=== PATIENT | female | born 1985 | race Caucasian/White ===

== ENCOUNTER 2020-03-13 07:48 | Emergency (ER) | payer BC, SELFPAY ==
[2020-03-13 08:00] VITALS: BP 167/94; PULSE 107; RESP 18; TEMP 36.9; O2SAT 99
[2020-03-13 08:26] LABS: Add Urine Microscopic? NO; Appearance Urine Clear (Clear); Bilirubin Urine Negative (Negative); Blood Urine Negative (Negative); Color Urine Yellow (Yellow); Glucose Urine UA Negative (Negative); Ketones Urine Negative (Negative); Leukocyte Esterase Ur Negative (Negative); Nitrate Urine Negative (Negative); Protein Urine Negative (Negative); Specific Grav Ur 1.015 (1.010-1.020); Urobilinogen Urine 0.2 mg/dL (0.2-1.0); pH Urine 5.5 (5.0-8.0)
--- NOTE | 2020-03-13 08:53 | ED.ABDPAIN ---
HPI - Abdominal Pain General Chief Complaint: Urogenital-Female Stated Complaint: CAN NOT URINATE Source: patient Mode of arrival: ambulatory Limitations: no limitations History of Present Illness HPI narrative: this 34-year-old female woke up with a suprapubic pain this morning rated 5/10. This was associated with inability to urinate. She denies recent dysuria. For over a year she has had problems with urinary urgency. She wears a liner to address this. There are times urine soaks her underwear requiring her to shower. The incontinence has never been evaluated. She uses a Mirena IUD; spotting started yesterday. She inserted a menstrual cup yesterday which she has been wearing since. She has used a menstrual cup with menstruation for long time without difficulties with urinary retention. She denies fevers chills back pain. No history of recurring UTIs Related Data Home Medications Medication Instructions Recorded Confirmed No Home Medications 03/13/20 03/13/20 Allergies Allergy/AdvReac Type Severity Reaction Status Date / Time No Known Allergies Allergy Unverified 11/13/15 18:43 Review of Systems Constitutional: Constitutional: Reports no additional constitutional complaints Gastrointestinal: Gastrointestinal: Denies diarrhea, Denies nausea and Denies vomiting Genitourinary: Genitourinary: Reports no additional female genitourinary complaints [facility] Past Medical History Medical History (Updated 03/13/20 @ 22:37 by Lee Solorzano MD) Asthma Social History Social History (Updated 03/13/20 @ 09:00 by Lee Solorzano MD) Smoking status: Never smoker Alcohol intake: current Alcohol use details: rarely drinks Exam Narrative: Exam Narrative: Durham catheter was inserted prior to my examination. Healthy-appearing female resting comfortably in bed. GI: GI Palp: Yes Tenderness to palpation present (GI) (very minor suprapubic tenderness. No palpable mass) : General: Yes no CVA tenderness Course Course Emergency Course: A bladder scan showed a full bladder. Durham catheter yielded 650 mL of urine. The Durham catheter and cervical cup was removed. Pt urinated following this. Vital Signs Vital signs: Vital Signs Temperature 36.9 C 03/13/20 08:00 Pulse Rate 107 H 03/13/20 08:00 Respiratory Rate 18 03/13/20 08:00 Blood Pressure 167/94 H 03/13/20 08:00 Pulse Oximetry 99 03/13/20 08:00 Temperature 36.6 C 03/13/20 09:22 Pulse Rate 80 03/13/20 09:22 Respiratory Rate 20 03/13/20 09:22 Blood Pressure 125/75 03/13/20 09:22 Pulse Oximetry 100 03/13/20 09:22 MDM - Abdominal Pain MDM Narrative Medical decision making narrative: Urinary retention likely related to the use of a cervical cap. She may have urgency incontinence vs. overflow incontinence. Recommended f/u with PCP and urology. Lab Data Lab results narrative: Urinalysis negative for pyuria Labs: Lab Results 03/13/20 Range/Units 08:20 Urine Color Yellow (Yellow) Urine Appearance Clear (Clear) Urine pH 5.5 (5.0-8.0) Ur Specific [place] 1.015 (1.010-1.020) Urine Protein Negative (Negative) Urine Glucose (UA) Negative (Negative) Urine Ketones Negative (Negative) Ur Blood (Man) Negative (Negative) Urine Nitrate Negative (Negative) Urine Bilirubin Negative (Negative) Urine Urobilinogen 0.2 (0.2-1.0) mg/dL Ur Leukocyte Esterase Negative (Negative) Urine Characteristics Cloudy Discharge Plan Discharge Clinical Impression: Acute urinary retention Bladder incontinence Qualifiers: Urinary Incontinence type: unspecified incontinence Qualified Code(s): R32 - Unspecified urinary incontinence Patient Disposition: Home, Self-Care Condition: Stable Instructions: Acute Urinary Retention in Women (ED) Additional Instructions: Do not use cervical cup. Follow up with Dr. Wang for further evaluation of urinary urgenc
--- NOTE | 2020-03-13 08:56 | PC.NURSE ---
Pt. given lrg. amts. of water to drink, cooper removed, will see if pt. able to void on own p removal of catheter and pt. removed her menstrual cup.
[2020-03-13 09:22] VITALS: BP 125/75; PULSE 80; RESP 20; TEMP 36.6; O2SAT 100
== END 2020-03-13 09:28 | disposition home or self-care (01) ==
PROVIDERS: Emergency Provider Family Medicine; PCP Internal Medicine
DX: R33.9 Retention of urine, unspecified (principal)
CPT/HCPCS: 81003; 87086; 99282; 99283

== ENCOUNTER 2023-03-20 11:05 | Outpatient (CLI) | payer BC, SELFPAY ==
[2023-03-20 11:19] LABS: Basophils Absolute Auto 0.07 K/mm3 (0.00-0.10); Basophils Percent Auto 0.9 % (0.0-1.0); Eosinophils Absolute Auto 0.21 K/mm3 (0.02-0.50); Eosinophils Percent Auto 2.7 % (1.0-6.0); Hematocrit 39.8 % (35.0-49.0); Hemoglobin 13.6 g/dL (12.0-15.0); Immature Granulocyte Absolute 0.04 K/mm3 (0.00-0.00); Immature Granulocyte Percent A 0.5 % (0.0-0.0); Lymphocytes Absolute Auto 1.39 K/mm3 (1.10-4.50); Mean Corpuscular HGB Conc 34.2 g/dL (32.0-36.0); Mean Corpuscular Hemoglobin 28.3 pg (27.0-31.0); Mean Corpuscular Volume 82.7 fL (78.0-102.0); Mean Platelet Volume 10.6 fl (9.2-11.8); Monocytes Absolute Auto 0.48 K/mm3 (0.10-0.90); Monocytes Percent Auto 6.2 % (2.0-11.0); Neutrophils Absolute Auto 5.5 K/mm3 (1.7-7.2); Neutrophils Percent Auto 71.7 % (50.0-70.0); Platelet Count Result 231 K/mm3 (150-420); Red Blood Count 4.81 M/mm3 (4.20-5.40); Red Cell Distribution Width 12.9 % (11.6-14.4); White Blood Count 7.7 K/mm3 (4.8-10.8)
[2023-03-20 11:20] LABS: Appearance Urine Clear (Clear); Bilirubin Urine Negative (Negative); Blood Urine Negative (Negative); Color Urine Light Yellow (Yellow); Glucose Urine UA Negative (Negative); Ketones Urine Negative (Negative); Leukocyte Esterase Ur Negative (Negative); Nitrate Urine Negative (Negative); Protein Urine Negative (Negative); Urobilinogen Urine 0.2 mg/dL (0.2-1.0)
[2023-03-20 11:23] LABS: Add Urine Microscopic? NO
[2023-03-20 13:49] LABS: Alanine Aminotransferase 23 U/L (14-59); Alkaline Phosphatase 78 U/L (46-116); Anion Gap 9 mmol/L (8-16); Aspartate Amino Transferase 13 U/L (15-37); Bilirubin,Total 0.4 mg/dL (0.00-1.00); Blood Urea Nitrogen 9 mg/dL (7-18); Calcium 8.8 mg/dL (8.5-10.1); Carbon Dioxide 26 mmol/L (21-32); Chloride 105 mmol/L (98-108); Estimated Glomerular Filt Rate > 60; Free T3 2.91 pg/mL (2.18-3.98); Free T4 Free Thyroxine 0.98 ng/dL (0.76-1.46); Glucose 95 mg/dL (70-99); Magnesium 1.9 mg/dL (1.8-2.4); Osmolality Calculated 288 mOsm/kg (285-295); Sodium 140 mmol/L (136-145); Thyroid Stimulating Hormone 1.92 uIU/mL (0.36-3.74); Total Protein 7.5 g/dL (6.4-8.2)
[2023-03-20 14:28] LABS: Triglycerides 67 mg/dL (0-150)
[2023-03-20 14:30] LABS: Cholesterol 235 mg/dL (0-200); HDL Direct 55 mg/dL (40-60); LDL Cholesterol Calculated 167 mg/dL (<130)
[2023-03-20 15:04] LABS: Hemoglobin A1C 5.2 % (<5.7)
== END 2023-03-20 11:06 | disposition home or self-care (01) ==
LOC: CHSLAB 11:08
PROVIDERS: PCP Internal Medicine; Visit Provider Internal Medicine
DX: Z00.00 Encounter for general adult medical examination without abnormal findings (principal)
CPT/HCPCS: 36415; 80053; 80061; 81003; 83036; 83735; 84439; 84443; 84481; 85025

== ENCOUNTER 2024-03-17 07:44 | Outpatient (CLI) | payer BC, SELFPAY ==
--- NOTE | ~2024-03-17 | MM_ITS ---
EXAMINATION: MM screening goran BI w divya HISTORY: Screening TECHNIQUE: Craniocaudal and mediolateral oblique 3-D tomosynthesis images were obtained and synthetic 2-D images were generated. CAD analysis was submitted and interpreted. COMPARISON: No prior mammogram is available for comparison at this institution. BREAST PARENCHYMAL COMPOSITION: Dense: The breasts are extremely dense, which lowers the sensitivity of mammography. FINDINGS: There is no evidence of suspicious mass, calcification, or architectural distortion to sugg est malignancy in either breast. There has been no suspicious interval change. IMPRESSION: 1. No mammographic evidence of malignancy. 2. Recommend routine screening mammography in one year. BI-RADS Category 1: Negative Reviewed, dictated and finalized at location A.
== END 2024-03-17 07:45 | disposition home or self-care (01) ==
LOC: CHSIMG 07:45
PROVIDERS: PCP Internal Medicine
DX: Z12.31 Encounter for screening mammogram for malignant neoplasm of breast (principal)
CPT/HCPCS: 77063; 77067

== ENCOUNTER 2025-04-10 11:58 | Outpatient (CLI) | payer OTHER, SELFPAY ==
--- NOTE | ~2025-04-10 | MM_ITS ---
EXAMINATION: MM screening goran BI w divya HISTORY: Screening TECHNIQUE: Craniocaudal and mediolateral oblique 3-D tomosynthesis images were obtained and synthetic 2-D images were generated. CAD analysis was submitted and interpreted. COMPARISON: 03/17/2024 BREAST PARENCHYMAL COMPOSITION: Dense: The breasts are extremely dense, which lowers the sensitivity of mammography. FINDINGS: There is no evidence of suspicious mass, calcification, or architectural distortion to sugg est malignancy in either breast. There has been no suspicious interval change. IMPRESSION: 1. No mammographic evidence of malignancy. 2. Recommend routine screening mammography in one year. BI-RADS Category 1: Negative Reviewed, dictated and finalized at location A.
--- OUTSIDE RECORDS SUMMARY | 2025-04-10 13:08 | XMS_ITS | Clinical Summary ---
Author Organization CC [facility] [address] Address [address] [place] [address] Phone Care Team Providers Care Clerical Aide Name Role Phone Amadou Wang MD Primary Care Provider + [phone] Allergies No known active allergies Medications levonorgestreL (MIRENA) IUD 1 each by intrauterine route once Active Active Problems Problem Noted Date Diagnosed Date Fibroid, uterine 08/21/2021 Assessment & Plan (08/21/2021 3:57 PM CDT): MRI from 07/22 with 2 uterine fibroids, the larger measuring up to 9.7 cm in diameter. S/p embolization with IR 08/21. Abdominal pain and nausea noted after procedure. -Pain management w/ HAND FUNNEL COATER per IR recs, transition to orals tomorrow if pain controlled -PRN antiemetics -Labs in the AM -Advance diet as tolerated -Tele w/ continuous pulse ox while on HAND FUNNEL COATER -Cipro 500mg BID x7 days per IR recs -Likely dc in the AM if pain and nausea controlled Assessment & Plan (08/21/2021 3:50 PM CDT): MRI from 07/22 with 2 uterine fibroids, the larger measuring up to 9.7 cm in diameter. S/p embolization with IR 08/21. Abdominal pain and nausea noted after procedure. -Pain management w/ HAND FUNNEL COATER per IR recs -PRN antiemetics -Labs in the AM -Advance diet as tolerated -Tele w/ continuous pulse ox while on HAND FUNNEL COATER -Likely dc in the AM if pain and nausea controlled Asthma 08/21/2021 Assessment & Plan (08/21/2021 3:51 PM CDT): -Cont home albuterol PRN HLD (hyperlipidemia) 08/21/2021 Assessment & Plan (08/21/2021 3:52 PM CDT): Reports hx of HLD, but does not take any meds -Pt encouraged to f/u with PCP for further monitoring and management Encounters Date Type Department Care Team Description 03/29/2025 10:00 AM CDT Office Visit [facility] at [address] [place] [address] Miriam Caicedo, Encounter for annual routine gynecological examination (Primary Dx); Screening mammogram for breast cancer; Surveillance of intrauterine contraceptive device 03/28/2025 [facility]ation [facility] [address] [place] [address] Sherry Chiang MA Appointment Reminder Call from Last 3 Months Immunizations Immunization Administration Dates Next Due DT 06/07/1998 DTP 10/16/1986, 4,1983,08/06 Hep A, Pediatric 05/29/2008,11/01/1999 Hep B, Adolescent or Pediatric 12/27/1997,1996,06/13/1997 Influenza, Quadrivalent, Spl it, Preservative Free, Intramuscular 08/21/2021 MMR 09/18/1992,03/26/1987 OPV 04/23/1984,1983,1983 Pneumococcal Polysaccharide PPV23 03/01/2014 Tdap 06/23/2008 Surgical History Surgery Date Site/Laterality Comments EMBOLIZATION ORGAN ISCHEMIA OR INFARCTION 08/21/2021 N/A Medical History Medical History Date Comments Asthma, exercise induced Hyperlipidemia Family History Medical History Relation Name Comments Diabetes Father Hyperlipidemia Father Hypertension Father Melanoma Maternal Grandfather COD Colon cancer Mother's Brother Relation Name Status Comments Father Maternal Grandfather Mother's Brother Social History Tobacco Use Types Packs/Day Years Used Date Smoking Tobacco: Never Passive Smoke Exposure: Never Smokeless Tobacco: Never Tobacco Cessation:Counseling Given: Not Answered Alcohol Use Standard Drinks/Week Comments Yes 0 (1 standard drink = 0.6 oz pur e alcohol) rarely AUDIT-C Answer Date Recorded Q1: How often do you have a drink containing alcohol? Never 03/29/2025 Q2: How many drinks containi ng alcohol do you have on a typical day when you are drinking? Patient does not drink Q3: How often do you have si x or more drinks on one occasion? 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 Not on file [employer] Not on file Not on file Not on file Obstetrics History Para Term AB IAB SAB Ectopic Multiple Livin g Live Births 2 2 2 0 0 0 0 0 0 2 2 Date Outcome GA Total Labor Labor/2nd/3rd Weight Sex Type Anes PTL Jina A1 A5 Name Clin Term Term Last Filed Vital Signs Vital Sign Reading Time Taken Comments Blood Pressure 126/72 03/29/2025 10:01 AM CDT Pulse 92 08/22/2021 8:40 AM CDT Temperature 37.3 C (99.1 F) 08/22/2021 8:40 AM CDT Respiratory Rate 16 08/22/2021 8:40 AM CDT Oxygen Saturation 99% 08/22/2021 8:40 AM CDT Inhaled Oxygen Concentration - - Weight 63.1 kg (139 lb 1.6 oz) 03/29/2025 10:01 AM CDT Height 149.9 cm (4' 11) 03/29/2025 10:01 AM CDT Body Mass Index 28.09 03/29/2025 10:01 AM CDT Plan of Treatment Health Maintenance Due Date Last Done Comments Breast Cancer Screening-Mammogram 1983 Hepatitis C Screening 1983 Varicella Vaccines (1 of 2 - 13+ 2-dose series) 1996 Pneumococcal vaccine <65 (2 of 2 - PCV) 03/01/2015 03/01/2014 DTaP/Tdap/Td Vaccine (7 - Td or Tdap) 06/23/2018 06/23/2008, 06/07/1998, 10/16/1986, Additional history exists Cervical Cancer Screening 06/17/20222020, 02/03/2017, 02/03/2017 Influenza Vaccine (Season Ended) 2025 08/21/2021 Depression Screening 03/29/2026 03/29/2025 Regular Well Visit/Exam 18-64 03/29/2026 03/29/2025, 03/15/2024, 02/27/2023, Additional history exists Hepatitis B Screening Completed 12/27/1997 , 07/11/1997, 06/13/1997 HPV Vaccines Aged Out No longer eligi ble based on patient's age to complete this topic Medical Devices Implanted Type Area Mother'S Helper Device Identifier Shelf Expiration Date Model / Serial / Lot [facility] [employer] S620 Embosphere Saline Syringe Compressible Nonaggregate Highly Target - [id number] Implanted:Qty: 1 on 08/21/2021 at [facility] [employer] 05/18/2024 S620 / / [id number] [facility] [employer] S620 Embosphere Saline Syringe Compressible Nonaggregate Highly Target - [id number] Implanted:Qty: 1 on 08/21/2021 at [facility] [employer] 05/18/2024 S620 / / [id number] [facility] [employer] S420 [facility] Prefill Saline Syringe Compressible Nonaggregate - [id number] Implanted:Qty: 1 on 08/21/2021 at [facility] [employer] 12/09/2023 S420 / / [id number] [facility] [employer] S620 Embosphere Saline Syringe Compressible Nonaggregate Highly Target - [id number] Implanted:Qty: 1 on 08/21/2021 at [facility] [employer] 04/06/2024 S620 / / [id number] [facility] [employer] S620 Embosphere Saline Syringe Compressible Nonaggregate Highly Target - [id number] Implanted:Qty: 1 on 08/21/2021 at [facility] [employer] 04/06/2024 S620GH / / [id number] [facility] [employer] S620 Embosphere Saline Syringe Compressible Nonaggregate Highly Target - [id number] Implanted:Qty: 1 on 08/21/2021 at [facility] 05/18/2024 S620GH / / [id number] [facility] [employer] S620 Embosphere Saline Syringe Compressible Nonaggregate Highly Target - [id number] Implanted:Qty: 1 on 08/21/2021 at [facility] [employer] 04/06/2024 S620GH / / [id number] [facility] [employer] S620 Embosphere Saline Syringe Compressible Nonaggregate Highly Target - [id number] Implanted:Qty: 1 on 08/21/2021 at [facility] [employer] 05/18/2024 S620GH / / [id number] [facility] Ex600 Cordis Exoseal 6fr Absorbable Plug [employer] Introducer Latex Free - [id number] Implanted:Qty: 1 on 08/21/2021 at [facility] 03/25/2023 EX600 / / [id number] Procedures Procedure Name Priority Date/Time Associated Diagnosis Comments IMAGING PAP AND HPV MRNA E6/E7 Routine 06/17/2021 12:00 AM CDT from Last 3 Months or Most Recently Relevant to Health Maintenance Results * Imaging Pap and HPV mRNA E6/E7 (06/17/2021 12:00 AM CDT) CLINICAL INFORMATION: [facility] Comment:Routine exam LMP [facility] Comment:06/07/21 Previous Pap [facility] Comment:INFORMATION NOT PROV IDED Prev. Bx [facility] Comment:INFORMATION NOT PROV IDED SOURCE: [facility] Comment:Cervix, Endocervix Pap, specimen adequacy [facility] Comment: Satisfactory for evaluation. Endocervical/transformation zone component present. HPV interp [facility] Comment:Negative for intraep ithelial lesion or malignancy. COMMENTS [facility] Comment: This Pap test has been evaluated with computer assisted technology. Station [facility] Comment: BES, CT(ASCP) CT screening location: [place] [address] [address] [place] [address] Comment [facility] Comment: EXPLANATORY NOTE: The Pap is a screening test for cervical cancer. It is not a diagnostic test and is subject to false negative and false positive results. It is most reliable when a satisfactory sample, regularly obtained, is submitted with relevant clinical findings and history, and when the Pap result is evaluated along with historic and current clinical information. Human papillomavirus RNA, High Risk E6/E7 Not Detected Not Detected [facility] [employer] [place] Comment: Methodology: Intensive Care Unit Registered Nurse-Mediated Amplification This assay detects E6/E7 viral messenger RNA (mRNA) from 14 high-risk HPV types (16,18,31,33,35,39,45,51,52,56,58,59,66,68). The analytical performance characteristics of this assay have been determined by [facility]. The modifications have not been cleared or approved by the FDA. This assay has been validated pursuant to the CLIA regulations and is used for clinical purposes. For additional information, please refer to http://education.[employer]./faq/TEL255l7 (This link if provided for information/ educational purposes only.) 06/17/2021 06/18/2021 5:2 6 AM CDT Narrative [facility] - 06/19/2021 8:24 PM CDT FASTING: UNKNOWN Cathie Foster NP LAB PATHOLOGY ORDERABLES Final Result [place] [address] [address] [place] [address] [facility] [employer] [address] [place] [address] from Last 3 Months or Most Recently Relevant to Health Maintenance Insurance [facility] Advance Directives For more information, please contact: [phone] * Full Code (Latest Code Status on File) Date Activated Date Inactivated Comments 08/21/2021 8:39 AM 08/22/2021 2:59 PM Care Teams Clerical Aide Relationship Specialty Start Date End Date Amadou Wang MD [address] [place] [id number] (work) PCP - General 02/03/17
--- OUTSIDE RECORDS SUMMARY | 2025-04-10 13:08 | XMS_ITS | Referral Summary ---
Author Organization CC [facility] [address] Address [address] [place] [address] Phone Care Team Providers Care It Data Architect Name Role Phone Amadou Wang MD Primary Care Provider Encounters Date Type Department Care Team Description 03/29/2025 10:00 AM CDT Office Visit [facility] [address] [place] [address] Miriam Caicedo DO Encounter for annual routine gynecological examination (Primary Dx); Screening mammogram for breast cancer; Surveillance of intrauterine contraceptive device 03/28/2025 [facility] [address] [place] [address] Sherry Chiang MA Appointment Reminder Call from Last 3 Months Allergies No known active allergies Medications levonorgestreL [...] nausea noted after procedure. -Pain management w/ DECK SUPERVISOR per IR recs, transition to orals tomorrow if pain controlled -PRN antiemetics -Labs in the AM -Advance diet as tolerated -Tele w/ continuous pulse ox while on DECK SUPERVISOR -Cipro 500mg BID x7 days per IR recs -Likely dc in the AM if pain and nausea controlled Assessment & Plan (08/21/2021 3:50 PM CDT): MRI from 07/22 with 2 uterine fibroids, the larger measuring up to 9.7 cm in diameter. S/p embolization with IR 08/21. Abdominal pain and nausea noted after procedure. -Pain management w/ DECK SUPERVISOR per IR recs -PRN antiemetics -Labs in the AM -Advance diet as tolerated -Tele w/ continuous pulse ox while on DECK SUPERVISOR -Likely dc in the AM if pain and nausea controlled Asthma 08/21/2021 Assessment & Plan (08/21/2021 3:51 PM CDT): -Cont home albuterol PRN HLD (hyperlipidemia) 08/21/2021 Assessment & Plan (08/21/2021 3:52 PM CDT): Reports hx of HLD, but does not take any meds -Pt encouraged to f/u with PCP for further monitoring and management Immunizations Immunization Administration Dates Next Due DT 06/07/1998 DTP 10/16/1986, 4,1983,08/06 Hep A, Pediatric 05/29/2008,11/01/1999 Hep B, Adolescent or Pediatric 12/27/1997,1996,06/13/1997 Influenza, Quadrivalent, Spl it, Preservative Free, Intramuscular 08/21/2021 MMR 09/18/1992,03/26/1987 OPV 04/23/1984,1983,1983 Pneumococcal Polysaccharide PPV23 03/01/2014 Tdap 06/23/2008 Social History Tobacco Use Types Packs/Day Years [...] on file Legal Sex Female 8:48 AM ULTRASOUND SONOGRAPHER Gender Identity Female 03/10/2025 1:25 PM CDT Sexual Orientation Not on file 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 [employer] 05/18/2024 S620 / / [id number] [employer] S620 Embosphere Saline Syringe Compressible Nonaggregate Highly Target - [id number] Implanted:Qty: 1 on 08/21/2021 at [facility] [employer] 05/18/2024 S620GH / / [id number] [employer] S420 Embosphere Prefill Saline Syringe Compressible Nonaggregate - [id number] Implanted:Qty: 1 on 08/21/[address] [facility] [employer] 12/09/2023 S420GH / / [id number] [facility] S620 Embosphere Saline Syringe Compressible Nonaggregate Highly Target - [id number] Implanted:Qty: 1 on 08/21/[address] [facility] [employer] 04/06/2024 S620GH / / [id number] [facility] [employer] S620 Embosphere Saline Syringe Compressible Nonaggregate Highly Target - [id number] Implanted:Qty: 1 on 08/21/[address] [facility] [employer] 04/06/2024 S620GH / / [id number] [facility] [employer] S620 Embosphere Saline Syringe Compressible Nonaggregate Highly Target - [id number] Implanted:Qty: 1 on 08/21/[address] [facility] [employer] 05/18/2024 S620GH / / [id number] [facility] [employer] S620 Embosphere Saline Syringe Compressible Nonaggregate Highly Target - [id number] Implanted:Qty: 1 on 08/21/[address] [facility] [employer] 04/06/2024 S620GH / / [id number] [facility] [employer] S620 Embosphere Saline Syringe Compressible Nonaggregate Highly Target - [id number] Implanted:Qty: 1 on 08/21/[address] [facility] [employer] 05/18/2024 S620GH / / [id number] [facility] Ex600 Cordis Exoseal 6fr Absorbable Plug Flat [employer] Introducer Latex Free - [id number] Implanted:Qty: 1 on 08/21/2021 at [facility] 03/25/2023 EX600 / / [id number] Procedures Procedure Name Priority Date/Time Associated Diagnosis Comments IMAGING PAP AND HPV MRNA E6/E7 Routine 06/17/2021 12:00 AM CDT from Last 3 Months or Most Recently Relevant to Health Maintenance Results * Imaging Pap and HPV mRNA E6/E7 (06/17/2021 12:00 AM CDT) CLINICAL INFORMATION: [facility] Comment:Routine exam LMP [facility] Comment:06/07/[address] [facility] Comment:INFORMATION NOT PROV IDED Prev. Bx [facility] Comment:INFORMATION NOT PROV IDED SOURCE: [facility] Comment:Cervix, Endocervix Pap, specimen adequacy [facility] Comment: Satisfactory for evaluation. Endocervical/transformation zone component present. HPV interp [facility] Comment:Negative for intraep ithelial lesion or malignancy. COMMENTS [facility] Comment: This Pap test has been evaluated with computer assisted technology. Order Planner [facility] Comment: BES, CT(ASCP) CT screening location: [place] [address] [place] [address] [facility] Comment: EXPLANATORY NOTE: The Pap is a [...] High Risk E6/E7 Not Detected Not Detected [facility] [employer] [facility] Comment: Methodology: Rn Wound-Mediated Amplification This assay detects E6/E7 viral messenger RNA (mRNA) from 14 high-risk HPV types (16,18,31,33,35,39,45,51,52,56,58,59,66,68). The analytical performance characteristics of this assay have been determined by [facility]. The modifications have not been cleared or approved by the FDA. This assay has been validated pursuant to the CLIA regulations and is used for clinical purposes. For additional information, please refer to http://education.[employer] Systems/faq/YBT677l6 (This link if provided for information/ educational purposes only.) 06/17/2021 06/18/2021 5:2 6 AM CDT Narrative [facility] - 06/19/2021 8:24 PM CDT FASTING: UNKNOWN Cathie Foster NP LAB PATHOLOGY ORDERABLES Final Result [facility] [address] [address] [place] [phone] [employer] [facility] [address] [place] [address] from Last 3 Months or Most Recently Relevant to Health Maintenance Insurance [facility] Advance Directives For more information, please contact: [phone] * Full Code (Latest Code Status on File) Date Activated Date Inactivated Comments 08/21/2021 8:39 AM 08/22/2021 2:59 PM Care Teams It Data Architect Relationship Specialty Start Date End Date Amadou Wang MD [address] [place] [address] PCP - General 02/03/17
== END 2025-04-10 11:59 | disposition home or self-care (01) ==
PROVIDERS: PCP Internal Medicine
DX: Z12.31 Encounter for screening mammogram for malignant neoplasm of breast (principal)
CPT/HCPCS: 77063; 77067